=== PATIENT | male | born 1955 | race Caucasian/White ===

== ENCOUNTER 2017-07-08 18:00 | Inpatient (IN) | payer OTHER ==
[~2017-07-08] VITALS: Ht 177.8 cm; Wt 108.9 kg
--- NOTE | ~2017-07-08 | PA ---
Unit #: [id number] #: [id number] Patient: MEHREEN GREENFIELD [id number] [facility] [address] [place] [address] [id number] MR#: [id number] NAME: MEHREEN GREENFIELD ROOM: P258 Age: 61 Sex: M Admission Date: 07/08/2017 : 1955 Date of Assessment: 07/09/2017 Attending Physician: Arnold Howard M.D. Admitting Physician: Arnold Howard M.D. Primary Care Physician: Primary Care Physician No PSYCHIATRIC ASSESSMENT The patient is a 61-year-old, white male, well known to this facility from multiple previous admissions; however, last admission appears to be some time ago in 2017. CHIEF COMPLAINT Suicidal ideation. INFORMANTS Patient, partially reliable; [facility], reliable. HISTORY OF PRESENT ILLNESS The patient is a 61-year-old, male, who presented to this facility after stating "that he had been depressed since Tuesday with thoughts of rolling his wheelchair into traffic." He states that he cannot get anyone to help him get back on his medications. He states that he was discharged from [facility] last month and was only given 7 days of medications and he ran out of them. He reports that this has made him feel really bad and if he does not get some help, he would hurt himself. PAST PSYCHIATRIC HISTORY The patient has had history of numerous inpatient hospitalizations at this facility some time ago and most recently a psychiatric inpatient hospitalization at [facility]. MEDICATIONS Please see MAR. ALLERGIES The patient reported allergies are to Darvocet and codeine. FAMILY HISTORY Noncontributory. SOCIAL HISTORY The patient reports that he is currently living with a cousin and is on disability at this time. He does have a history of polysubstance dependence, but denies abuse of any psychoactive substances at this time. He is a smoker, although he reports that he smokes 3 to 4 cigarettes today. He reports that he is disabled by psychiatric illness. MENTAL STATUS EXAMINATION At this time, the patient revealed to be a well-developed, well-nourished, white male, appearing older than his stated age. He ambulates with some Unit #: [id number] #: [id number] Patient: GIN,MEHREEN difficulty and is able to do so, but chooses to reside in a wheelchair most of the time. He was awake, alert and fully oriented in all spheres. His mood was mildly dysphoric and his affect was constricted. His speech was rapid and pressured, but easily understood. There are no gross deficits in memory or cognition noted. Intelligence is judged to be in the left lower average range based on fund of knowledge. He remained cooperative throughout the interview and is currently reporting that positive suicidal ideation with no specific plan at this time. He denies auditory or visual hallucinations. No overt symptoms of psychosis were noted. His judgment and insight appeared to be limited. ASSETS AND LIABILITIES The patient is aware of community resources. Liabilities are chronic noncompliance with treatment and multiple medical comorbidities. ADMITTING DIAGNOSES AXIS I: Schizoaffective disorder by history; polysubstance dependence by history. AXIS II: Personality disorder, not otherwise specified. AXIS III: Low back pain, hepatitis B, hypertension, history of myocardial infarction, coronary artery disease, and osteoarthritis as well as multiple hip replacement surgery. AXIS IV: AXIS V: TREATMENT PLAN The patient will remain hospitalized for safety and stabilization. Suicide precautions are in place. We will continue previously ordered psychotropic medications for the time being. We will consider adjustments based on the patient's progression or emergence of further symptoms. The patient will participate in appropriate mascorro milieu activities. ESTIMATED LENGTH OF STAY 5 days. Dictated by... Vero Martin APRN for Fani Castanon/taco TD: 07/11/2017 06:41 JOB #: [id number] PSYCHIATRIC ASSESSMENT Page 1 of 1 X VERO MARTIN PSYCHIATRIC ASSESSMENT
--- NOTE | ~2017-07-08 | HP ---
Unit #: [id number] #: [id number] Patient: MEHREEN GREENFIELD [id number] [place] [address] [id number] MR#: [id number] NAME: MEHREEN GREENFIELD ROOM: P258 Age: 61 Sex: M Admission Date: 07/08/2017 : 1955 Attending Physician: Arnold Howard M.D. Admitting Physician: Arnold Howard M.D. Primary Care Physician: Primary Care Physician No HISTORY AND PHYSICAL HISTORY OF PRESENT ILLNESS The patient is a 61-year-old male admitted to [address] [place] [address] on 07/08/2017 for suicidal ideation. PAST MEDICAL HISTORY 1. Hypertension. 2. Sleep apnea. 3. Hyperlipidemia. 4. Coronary artery disease. 5. History of an DE. 6. Hepatitis C, currently in remission. 7. Chronic pain. 8. Hernia. PAST SURGICAL HISTORY 1. Cardiac stent x2. 2. CABG. 3. Hip surgery x5. 4. Back surgery x4. 5. Cholecystectomy. 6. Rib removal. ALLERGIES Codeine, propoxyphene and Tylenol. SOCIAL HISTORY The patient is disabled. He lives with his cousin. He smokes 1/2 pack of cigarettes daily. FAMILY HISTORY Noncontributory. REVIEW OF SYSTEMS CONSTITUTIONAL: No fever or chills. HEENT: He complains of bilateral ear pain with bleeding and drainage. CARDIOVASCULAR: Denies chest pain, irregular heart rhythm or palpitations. CHEST: Denies shortness of breath or cough. No hemoptysis. GASTROINTESTINAL: Denies nausea, vomiting, diarrhea or chronic constipation. ENDOCRINE: Denies history of increased thirst or urination. No recent significant weight loss or gain. GENITOURINARY: Denies dysuria, frequency, or hematuria. SKIN: Denies any rashes. Unit #: [id number] #: [id number] Patient: MEHREEN GREENFIELD HEMATOLOGIC: Denies history of increased bleeding or bruising. MUSCULOSKELETAL: Denies any hot, swollen joints. No generalized muscle pain. NEUROLOGIC: Denies problems with vision or speech. No frequent, severe headaches. No numbness, tingling or weakness in any extremities. Denies loss of bladder or bowel control. CURRENT MEDICATIONS 1. Quetiapine. 2. Ibuprofen. 3. Pantoprazole. 4. Lisinopril. 5. Trazodone. 6. Plavix. 7. Baclofen. 8. Cymbalta. 9. [place]ox[place]. PHYSICAL EXAMINATION VITAL SIGNS: Temperature 98.5, heart rate 86, respirations 16, blood pressure 120/103. HEIGHT: 5 feet 10. WEIGHT: 240 pounds. SKIN: Surgical scar noted on his chest and multiple bruises on his body. HEENT: Otoscope was not immediately available for examination. NECK: Supple without lymphadenopathy or thyromegaly. HEART: Regular rate and rhythm without murmur. LUNGS: Clear. ABDOMEN: He has a ventral hernia. : Not done. EXTREMITIES: No evidence of cyanosis, clubbing or edema. Moves all without focal deficit. NEUROLOGICAL: Grossly within normal limits. Cranial Nerves: II: Visual rand are intact. III, IV AND : Extraocular movements are intact. Pupils are equal, round and reactive to light. V: Facial sensation is grossly normal. VII: Facial movements and expression are normal. VIII: Auditory acuity grossly intact. IX, X: Uvula is midline. Phonation is normal. XI: Patient shrugs shoulders and turns head normally. XII: Tongue protrudes in the midline. Sensory and Motor Function: Sensory and motor sensation is grossly normal. Motor: moves all extremities well. Coordination: Gait is normal. Deep Tendon Reflexes: Intact. IMPRESSION 1. Psychiatric admission. 2. Hypertension. 3. Sleep apnea. 4. Hyperlipidemia. 5. Coronary artery disease. 6. History of DE. 7. Hepatitis C, in remission. 8. Chronic pain. 9. Hernia. 10. Bilateral ear complaints. RECOMMENDATIONS PSYCHIATRIC: Per psychiatrist. Unit #: [id number] #: [id number] Patient: MEHREEN GREENFIELD MEDICAL: No contraindication to participate in facility's activities. MEDICAL PROGNOSIS Fair. MEDICAL CONDITION Stable. Dictated by... Tip Herrera/brown TD: 07/09/2017 19:00 JOB #: [id number] HISTORY AND PHYSICAL Page 1 of 1 X CLINTON ZUNIGA APRN HISTORY AND PHYSICAL
--- NOTE | ~2017-07-08 | PN ---
Unit #: [id number] #: [id number] Patient: MEHREEN MEJÍA [id number] [facility] [address] [place] [address] [id number] MR#: [id number] NAME: MEHREEN MEJÍA ROOM: P258 Age: 61 Sex: M Admission Date: 07/08/2017 : 1955 Attending Physician: Arnold Howard M.D. Admitting Physician: Arnold Howard M.D. Primary Care Physician: Primary Care Physician No MISHA PROGRESS NOTES DATE 07/11/2017 DISCUSSION Upon today's assessment Mr. Taylor was found resting in his bed appearing in no apparent discomfort. He is still endorses increasing depression with racing thoughts. He states that his depression is an 8 out of 10 with 10 being the most severe. He reports improved sleep and request to speak with the social sciences research scientist regarding post discharge placement. At this time, he denies suicidal or homicidal ideation and verbalized no plan or intent. He also denies any auditory or visual hallucinations and no overt symptoms of psychosis was noted. PLAN We will continue to monitor Mr. Mejía for suicidal ideation as well as q 15 minutes for safety and encourage him to attend dual diagnosis treatment programming. Dictated by... AISSATOU Castorena/lluvia TD: 07/14/2017 23:39 JOB #: [id number] [facility]ISHA PROGRESS NOTES Page 1 of 1 X JAMESON MARTIN PROGRESS NOTE
--- NOTE | ~2017-07-08 | PN ---
Unit #: [id number] #: [id number] Patient: MEHREEN GREENFIELD [id number] [place] [address] [id number] MR#: [id number] NAME: MEHREEN GREENFIELD ROOM: P258 Age: 61 Sex: M Admission Date: 07/08/2017 : 1955 Attending Physician: Arnold Howard M.D. Admitting Physician: Arnold Howard M.D. Primary Care Physician: Primary Care Physician Aleksandra DIGGS NOTES DATE OF SERVICE: 07/10/2017 This is Vero Martin APRN covering for Dr. Arnold Howard at [facility]. This patient was seen and assessed on 07/10/2017. Upon today's assessment, the patient was noted to be sitting in the day room, appearing in no apparent discomfort. He appears a bit brighter today and is very talkative. His speech is slightly pressured and he stated that he slept better last night. He denied direct suicidal ideation, but stated that at this time he does not feel like he wants to harm himself, but does endorse that he does have intermittent feelings which he describes more like intrusive thoughts, may be he is tired of being here. He reports moderate levels of depression and rates them about 8/10 with 10 being the most severe. He continues to state that he would like to return to the care home that he was previously at post discharge from this facility and is requesting to speak with the social work faculty member. PLAN Continue to monitor this patient q.15 minutes for safety as well as suicidal ideation. Dictated by... Vero Martin APRN for Fani Castanon/mekal TD: 07/13/2017 04:13 JOB #: [id number] [facility] PROGRESS NOTES Page 1 of 1 X VERO MARTIN PROGRESS NOTE
[~2017-07-08 18:00] MED LIST: ACETAMINOPHEN PO; ALPRAZOLAM PO; ASPIRIN; ATENOLOL; ATENOLOL PO; CEPACOL SORE T1 EAC1; CEPACOL SORE TH1 LOZ PO; COUMADIN PO; CRESTOR PO; CYMBALTA PO; DIAZEPAM; IMODIUM2 MG PO; LEXAPRO PO; LIPITOR; LISINOPRIL; LISINOPRIL PO; LORTAB 10/500 T1 TAB PO; MEVACOR; MILK OF MAGNESIA PO; NICOTINE T1 PATCH .2; PERCOCET5/325; PERPHENAZINE8 MG PO; PLAVIX PO; PRILOSEC PO; PROTONIX; PROTONIX PO; REMERON; REMERON PO; ROBITUSSIN-DM118 M1; ROBITUSSIN-DM120 ML PO; SEROQUEL PO; SEROQUEL XR400 M1 PO; TRAZODONE; TRAZODONE PO; ULTRACET TABLET1 TAB
[2017-07-09 14:38] LABS: URINE APPEARANCE TURBID; URINE BILIRUBIN NEG (NEG); URINE BLOOD NEG (NEG); URINE COLOR YELLOW; URINE GLUCOSE NEG (NEG); URINE KETONE NEG (NEG); URINE LEUKOCYTE ESTERASE NEG (NEG); URINE NITRATE NEG (NEG); URINE PROTEIN TRACE (NEG); URINE SPECIFIC GRAVITY 1.031 (1.003-1.035); URINE UROBILINOGEN 0.2 MG/DL (NEG)
[2017-07-09 14:56] LABS: AMPHETAMINE NEG (NEG); BARBITURATES NEG (NEG); BENZODIAZEPINES POS (NEG); COCAINE NEG (NEG); MARIJUANA NEG (NEG); OPIATES POS (NEG); TRICYCLIC ANTIDEPRESSANTS POS (NEG); U METHADONE NEG (NEG)
[2017-07-10 13:19] LABS: BASOPHIL% 0.5 % (0-2.5); EOSINOPHIL# 0.1 X10e3 (0-0.7); EOSINOPHIL% 1.9 % (0.0-7.0); HEMATOCRIT 36.7 % (38.0-50.0); HEMOGLOBIN 11.7 gm/dL (13.0-16.0); LYMPHOCYTE# 1.2 X10e3 (1.0-3.5); LYMPHOCYTE% 25.4 % (17.0-45.0); MEAN CELL VOLUME 76.7 FL (83-96); MEAN CORPUSCULAR HEMOGLOBIN 24.5 PG (28-34); MEAN CORPUSCULAR HGB CONC 31.9 g/dL (30-36); MEAN PLATELET VOLUME 8.2 FL (6.5-11.5); MONOCYTE# 0.4 X10e3 (0-1.0); MONOCYTE% 8.5 % (3.0-12.0); NEUTROPHIL# 3.1 X10e3 (1.5-7.1); NEUTROPHIL% 63.7 % (40-75); PLATELET COUNT 247 X10e3 (140-420); RED BLOOD COUNT 4.78 X10e (3.90-5.60); RED CELL DISTRIBUTION WIDTH 17.5 % (11.0-15.5); WHITE BLOOD COUNT 4.8 X10e3 (4.0-10.5)
[2017-07-10 13:21] LABS: ALBUMIN SERUM 3.4 g/dL (3.5-5.0); BILIRUBIN,TOTAL 0.1 mg/dL (0.2-2.0); BUN/CREATININE RATIO 16.66; CALCIUM SERUM 8.8 mg/dL (8.4-10.2); CREATININE SERUM 0.6 mg/dL (0.6-1.4); GLOM FILT RATE Estimated 110.1 mL/min (>60); POTASSIUM 4.2 mmol/L (3.5-5.1); PROTEIN TOTAL SERUM 6.6 g/dL (6.0-8.3)
[2017-07-10 13:47] LABS: DIFF IND NO
== END 2017-07-14 10:15 | disposition home or self-care (01) | DRG 885 ==
LOC: P2L 22:11
PROVIDERS: Psychiatry & Neurology Psychiatry
DX: F25.9 Schizoaffective disorder, unspecified (principal); I10 Essential (primary) hypertension; G47.30 Sleep apnea, unspecified; E78.5 Hyperlipidemia, unspecified; I25.10 Atherosclerotic heart disease of native coronary artery without angina pectoris; Z88.5 Allergy status to narcotic agent; Z88.8 Allergy status to other drugs, medicaments and biological substances; F60.9 Personality disorder, unspecified
CPT/HCPCS: 80053; 80307; 81003; 85025